=== PATIENT | male | born 1945 | race Caucasian/White ===

== ENCOUNTER → 2018-01-03 07:49 | Outpatient (CLI) | payer OTHER, SELFPAY ==
[2018-01-03 09:45] LABS: Potassium 3.2 mmol/L (3.5-5.1)
== END ==
PROVIDERS: PCP Nurse Practitioner Family; Visit Provider Nurse Practitioner Family
DX: E87.6 Hypokalemia (principal)
CPT/HCPCS: 36415; 84132

== ENCOUNTER 2019-10-14 01:46 | Outpatient (CLI) | payer OTHER, SELFPAY ==
[2019-10-14 08:26] LABS: Hemoglobin A1C 5.8 % (3.8-5.6)
[2019-10-14 10:01] LABS: ALT 41 U/L (16-63); AST 24 U/L (15-37); Albumin 3.8 g/dL (3.4-5.0); Alkaline Phosphatase 64 U/L (46-116); Anion Gap 6.8 mmol/L (3-11); BUN 15 mg/dL (7-18); Bilirubin, Total 1.5 mg/dL (0.2-1.0); CO2 31.2 mmol/L (21.0-32.0); CREATININE 1.08 mg/dL (0.70-1.30); Calcium 8.9 mg/dL (8.5-10.1); Calculated LDL 73 mg/dL (<100); Chloride 100 mmol/L (98-107); Cholesterol 125 mg/dL (<200); Glucose 104 mg/dL (74-106); HDL Cholesterol 32 mg/dL (40-60); Sodium 138 mmol/L (136-145); Total Protein 6.7 g/dL (6.4-8.2); Triglyceride 104 mg/dL (<150)
== END 2019-10-14 02:06 ==
PROVIDERS: PCP Nurse Practitioner Family; Visit Provider Nurse Practitioner Family
DX: E78.5 Hyperlipidemia, unspecified (principal); I10 Essential (primary) hypertension; R73.01 Impaired fasting glucose; E80.4 Gilbert syndrome
CPT/HCPCS: 36415; 80053; 80061; 83036

== ENCOUNTER 2020-06-10 05:03 | Outpatient (CLI) | payer MEDICARE, SELFPAY ==
[2020-06-10 09:12] LABS: Magnesium 1.7 mg/dL (1.8-2.4)
[2020-06-10 13:59] LABS: Potassium 3.1 mmol/L (3.5-5.1)
== END 2020-06-10 05:23 ==
PROVIDERS: PCP Nurse Practitioner Family; Visit Provider Nurse Practitioner Family
DX: E87.6 Hypokalemia (principal); E83.42 Hypomagnesemia
CPT/HCPCS: 36415; 80053; 80061; 83036; 83735; 84132; 85025

== ENCOUNTER 2021-01-07 02:20 | Outpatient (CLI) | payer MEDICARE, SELFPAY ==
[2021-01-07 07:49] LABS: Abs Immature Grans 0.02 10^3/uL (0.0-0.06); Absolute Basophil Count 0.06 10^3/uL (0.0-0.2); Absolute Eosinophil Count 0.12 10^3/uL (0.0-0.7); Absolute Monocyte Count 0.93 10^3/uL (0.1-0.8); Absolute Neutrophil Count 3.88 10^3/uL (1.2-6.7); Basophils % 0.8; Eosinophils % 1.5; HCT 47.4 % (40.0-50.0); HGB 16.2 g/dL (13.5-17.5); Immature Grans % 0.3; Lymphocytes % 35.9; MCH 32.7 pg (27.0-33.0); MCHC 34.2 % (32.0-36.0); MCV 95.8 fL (80-95); MPV 11.5 fL (8.0-11.0); Monocytes % 11.9; Neutrophils % 49.6; Nucleated RBC 0 %; Platelet Count 231 10^3/uL (130-400); RBC 4.95 10^6/uL (4.36-5.78); RDW 12.2 % (11.8-14.1); RDW-SD 43.1 fL; WBC 7.81 10^3/uL (4.4-10.8)
[2021-01-07 08:13] LABS: Prothrombin Time 10.1 sec (9.3-11.0)
[2021-01-07 08:48] LABS: ALT 35 U/L (16-63); AST 18 U/L (15-37); Albumin 4.1 g/dL (3.4-5.0); Alkaline Phosphatase 69 U/L (46-116); Anion Gap 8.6 mmol/L (3-11); BUN 12 mg/dL (7-18); CO2 33.4 mmol/L (21.0-32.0); CREATININE 1.1 mg/dL (0.70-1.30); Calcium 9.3 mg/dL (8.5-10.1); Calculated LDL 62 mg/dL (<100); Chloride 101 mmol/L (98-107); Cholesterol 119 mg/dL (<200); Glucose 103 mg/dL (74-106); HDL Cholesterol 36 mg/dL (40-60); Magnesium 1.9 mg/dL (1.8-2.4); Potassium 3.2 mmol/L (3.5-5.1); Sodium 143 mmol/L (136-145); Triglyceride 108 mg/dL (<150)
== END 2021-01-07 02:21 | disposition home or self-care (01) ==
LOC: LBO 02:20
PROVIDERS: PCP Nurse Practitioner Family; Visit Provider Nurse Practitioner Family
DX: I10 Essential (primary) hypertension (principal); R73.01 Impaired fasting glucose; E78.5 Hyperlipidemia, unspecified; K76.0 Fatty (change of) liver, not elsewhere classified; E83.42 Hypomagnesemia; Z51.81 Encounter for therapeutic drug level monitoring
CPT/HCPCS: 36415; 80053; 80061; 83735; 85025; 85610

== ENCOUNTER 2021-01-11 03:22 | Outpatient (CLI) | payer MEDICARE, SELFPAY ==
--- NOTE | 2021-01-11 07:30 | DI.US_ITS ---
APPROVED REPORT EXAM: Comprehensive 2D, Doppler, and color-flow Echocardiogram Patient Location: Out-Patient [place] Caster: Deepika Walker RDCS (AE) Indications: Mitral regurgitation Other Information Study Quality: Good Conclusion Normal left ventricular size and systolic function. Estimated ejection fraction is 60%. There are n o segmental wall motion abnormalities Normal right ventricular size and systolic function The left atrium is moderately dilated. The right atrium is normal in size The aortic valve is sclerotic and trileaflet without stenosis or regurgitation Moderate mitral annular calcification. Mild mitral regurgitation Normal tricuspid valve with trace regurgitation. Normal estimated right ventricular systolic pressur e Normal pulmonic valve with trace regurgitation The ascending aorta is mildly dilated Wall motion Left Ventricle The left ventricle is normal size. The left ventricular systolic function is normal. The left ventric ular ejection fraction is within the normal range. There is normal left ventricular wall thickness. T here is normal LV segmental wall motion. There is no ventricular septal defect visualized. Left ventr icular thrombus is present. Left ventricular thrombus appears mobile. LVEF is 60%. Right Ventricle The right ventricle is normal size. The right ventricular systolic function is normal. The RVSP is 26 .2 mmHg. Atria Left atrium is moderately dilated. The right atrium size is normal. The interatrial septum is intact with no evidence for an atrial septal defect. Aortic Valve The Aortic valve is sclerotic. Aortic valve is trileaflet. There is no aortic valvular stenosis. No a ortic regurgitation is present. Mitral Valve Moderate mitral annular calcification. No evidence of mitral valve stenosis. Mild mitral regurgitatio n. Tricuspid Valve The tricuspid valve is normal in structure. There is no tricuspid valve stenosis. Trace tricuspid reg urgitation. Pulmonic Valve The pulmonary valve is normal in structure. There is no pulmonic valvular stenosis. Trace pulmonic re gurgitation. Great Vessels The aortic root is normal in size. The ascending aorta is mildly dilated. Aortic arch is normal in ca liber. IVC is normal in size and collapses >50% with inspiration. Pericardium There is no pericardial effusion. 2D Dimensions IVSD d PLAX 0.89 cm M: 0.6-1.2 LV Vol A2C d MOD 125.5 mL LVPW d PLAX 0.86 cm M: 0.6 - 1.2 LV Vol A4C d MOD 97.5 mL LVID d PLAX 4.78 cm M: 4.2 - 5.8 LA vol/ BSA A2C s A-L 46.7 mL/m2 LVDs 3.15 cm M: 2.5 - 4.0 LA vol/ BSA A4C s A-L 26.4 mL/m2 Ao Root d 2.96 cm M: 3.1 - 3.7 LA Vol/ BSA Biplane s A-L 35.4 mL/m2 RA Area A4C 15.66 cm2 LA Area A4C s MOD 18.30 cm2 RA Vol/ BSA A4C s A-L 22.7 mL/m2 LA Area A2C s MOD 24.15 cm2 Ao Asc Diam d 3.69 cm M: 2.6 - 3.4 LV EF A4C MOD 60.5 % LV EF Teichholz 61.9 % LV EF A2C MOD 60.3 % LVEF (Leon's) 60.00 % M: 52 - 72 LV EF Biplane MOD 60.0 % LV Volume 85.10 mL M: 62 - 150 SV 66.86 mL LV Volume Index 45.02 mL/m2 M: 34 - 74 SV Index 35.26 mL/m2 LV Vol Biplane MOD 111.4 mL FS 33.30 % M-Mode TAPSE 2.91 cm (M/F) >1.7 LV Diastology MV E' medial 0.055 (>0.07 m/s) E/A Ratio 0.9 LV E/e MED 13.70 (<14) MV E Vmax 0.76 (0.4-1.3 m/s) MV E' lateral 0.093 (>0.1 m/s) MV A Vmax 0.85 (0.4-1.3 m/s) LV E/e LAT 8.10 (<14) MV E/A Ratio 0.86 MV E/E' medial 13.75 MV E/E' lateral 8.14 Aortic Valve LVOT Area 3.19 cm2 AoV Area Vmax 2.13 cm2 LVOT Vmax 1.22 m/s AoV Area/ BSA (Vmax) 1.12 cm2/m2 LVOT Mean Juan. 0.70 m/s YUSEF Mean Juan. 1.96 cm2 LVOT Peak Grad 5.9 mmHg YUSEF Mean Juan. Index 1.03 cm2/m2 LVOT Mean Grad 2.4 mmHg LVOT VTI 0.275 m LVOT Diam s 2.00 cm AoV Vmax 1.83 m/s Velocity Ratio 0.66 AoV Mean Juan. 1.14 m/s AoV Peak Grad 13.3 mmHg LVOT SV 87.77 mL AoV Mean Grad 6.2 mmHg AoV VTI 0.321 m AoV Area VTI 2.73 cm2 AoV Area/ BSA (VTI) 1.44 cm/m2 Mitral Valve MV DT 242 (160-240 msec) MR Vmax 4.99 m/s MV PHT 70 msec MR VTI 1.722 m MV Area PHT 3.13 cm2 MR Peak Grad 99.5 mmHg MV VTI 0.344 m MR Mean Grad 76.7 mmHg MV VTI Annulus 0.340 m MV Area VTI 2.52 (4.0-6.0 cm2) Pulmonary Valve PV Vmax 1.14 (0.5-1.5 m/s) RVOT Peak Gr. 1.39 mmHg PV Peak Grad 5.2 mmHg RVOT Mean Gr. 0.70 mmHg PV Mean Grad 2.6 mmHg RVOT VTI 0.134 m PV VTI 0.238 m RVOT Vmax 0.59 m/s Tricuspid Valve TR Peak Grad 23.2 mmHg TR Vmax 2.41 m/s RA Pressure 3.00 mmHg RVSP (TR) 26.2 mmHg
== END 2021-01-11 03:42 ==
PROVIDERS: PCP Nurse Practitioner Family; Visit Provider Nurse Practitioner Family
DX: I34.0 Nonrheumatic mitral (valve) insufficiency (principal); I77.810 Thoracic aortic ectasia; I35.8 Other nonrheumatic aortic valve disorders
CPT/HCPCS: 93306

== ENCOUNTER 2021-02-17 04:06 | Outpatient (CLI) | payer MEDICARE, SELFPAY ==
[2021-02-17 09:52] LABS: Anion Gap 7.6 mmol/L (3-11); BUN 15 mg/dL (7-18); CO2 31.4 mmol/L (21.0-32.0); Calcium 8.9 mg/dL (8.5-10.1); Chloride 104 mmol/L (98-107); Glucose 91 mg/dL (74-106); Magnesium 1.9 mg/dL (1.8-2.4); Potassium 4.1 mmol/L (3.5-5.1); Sodium 143 mmol/L (136-145)
== END 2021-02-17 04:07 | disposition home or self-care (01) ==
LOC: LBO 04:06
PROVIDERS: PCP Nurse Practitioner Family; Visit Provider Nurse Practitioner Family
DX: E87.6 Hypokalemia; E83.42 Hypomagnesemia
CPT/HCPCS: 36415; 80048; 83735

== ENCOUNTER 2022-04-05 03:18 | Outpatient (CLI) | payer MEDICARE, SELFPAY ==
[2022-04-05 10:50] LABS: Abs Immature Grans 0.01 10^3/uL (0.0-0.06); Absolute Basophil Count 0.05 10^3/uL (0.0-0.2); Absolute Eosinophil Count 0.14 10^3/uL (0.0-0.7); Absolute Lymphocyte Count 2.08 10^3/uL (1.2-3.4); Absolute Monocyte Count 0.75 10^3/uL (0.1-0.8); Absolute Neutrophil Count 3.54 10^3/uL (1.2-6.7); Basophils % 0.8; Eosinophils % 2.1; HCT 45.5 % (40.0-50.0); HGB 15.2 g/dL (13.5-17.5); Immature Grans % 0.2; Lymphocytes % 31.7; MCH 32.7 pg (27.0-33.0); MCHC 33.4 % (32.0-36.0); MCV 98 fL (80-95); MPV 11.3 fL (8.0-11.0); Monocytes % 11.4; Neutrophils % 53.8; Platelet Count 190 10^3/uL (130-400); RBC 4.65 10^6/uL (4.36-5.78); RDW-SD 43.5 fL; WBC 6.57 10^3/uL (4.4-10.8)
[2022-04-05 11:08] LABS: ALT 42 U/L (16-63); AST 19 U/L (15-37); Albumin 3.9 g/dL (3.4-5.0); Alkaline Phosphatase 69 U/L (46-116); BUN 19 mg/dL (7-18); Bilirubin, Total 1.7 mg/dL (0.2-1.0); CREATININE 1.1 mg/dL (0.70-1.30); Calcium 9.2 mg/dL (8.5-10.1); Calculated LDL 70 mg/dL (<100); Chloride 104 mmol/L (98-107); Cholesterol 126 mg/dL (<200); Estimated GFR 70.01 (mL/min/1.73m2); Glucose 101 mg/dL (74-106); HDL Cholesterol 38 mg/dL (40-60); Magnesium 1.8 mg/dL (1.8-2.4); Sodium 140 mmol/L (136-145); Total Protein 7.2 g/dL (6.4-8.2); Triglyceride 93 mg/dL (<150)
[2022-04-05 12:06] LABS: Hemoglobin A1C 5.8 % (<5.7)
== END 2022-04-05 03:19 | disposition home or self-care (01) ==
LOC: LBO 03:18
PROVIDERS: PCP Nurse Practitioner Family; Referring Provider Nurse Practitioner Family; Visit Provider Nurse Practitioner Family
DX: E78.5 Hyperlipidemia, unspecified (principal); R73.01 Impaired fasting glucose; I10 Essential (primary) hypertension; E83.42 Hypomagnesemia; K76.0 Fatty (change of) liver, not elsewhere classified
CPT/HCPCS: 36415; 80053; 80061; 83036; 83735; 85025

== ENCOUNTER → 2023-01-17 00:45 | Outpatient (CLI) | payer MEDICARE, SELFPAY ==
--- NOTE | 2023-01-17 07:15 | DI.CT_ITS ---
Exam(s) CT ABDOMEN PELVIS W EXAM: CT ABDOMEN PELVIS W CLINICAL HISTORY: r/o hernia, LOWER ABD PAIN, LT GROIN PAIN, R10.30. TECHNIQUE: Imaging Protocol: Axial computed tomography images with coronal and sagittal reformatted images were created and reviewed CONTRAST MATERIAL: Intravenous: Omnipaque 350 Contrast volume:100 ml Oral: yes / COMPARISON: No exams were available for comparison FINDINGS: ABDOMEN: Lung Bases: Normal where visualized. Heart size normal. Coronary arteries heavily calcified. Liver: Normal density. No measurable mass. Gallbladder and biliary tract: No radiodense calculus or dilation. Pancreas: Normal density, no abnormal calcifications or inflammatory process. Spleen: Normal. Kidneys: Normal size, contour and axis. No radiodense stones or obstructive uropathy. No suspicious m asses seen. Adrenal glands: No masses seen. Vasculature: Abdominal aorta non-dilated. Atherosclerotic calcifications. Soft tissues: Small fatty containing bilateral inguinal hernias, left slightly larger than right. No abdominal wall hernias. PELVIS: Bladder: No gross wall thickening. No calculi.No focal mass. Bowel: No obstruction. No bowel wall thickening. Appendix normal. Severe diverticulosis. No evide nce of diverticulitis. Peritoneal cavity: No ascites, collection or mesenteric inflammatory response. Bones: Unremarkable for age. Reproductive organs: Status post prostatectomy. Lymph nodes: Unremarkable. IMPRESSION:: Bilateral fatty containing inguinal hernias, left slightly greater than right. Diverticulosis. No evidence of diverticulitis. RADIATION DOSE DELIVERED: 859.47mGy.cm Total DLP DATA REPOSITORY: All CT scans at this facility are submitted to the National Radiology Data Registry (NRDR) Dose Index Registry (DIR) with the [employer] (ACR). RADIATION OPTIMIZATION: All CT scans at this facility use at least one of these dose optimization te chniques: automated exposure control; mA and/or kV adjustment per patient size (includes targeted exa ms where dose is matched to clinical indication); or iterative reconstruction.
[2023-01-17] MEDS: Barium Sulfate 2% W/V-Creamy Vanilla Smoothie 450 ML BTL 900 ML PO (08:25)
[2023-01-17] MEDS: Omnipaque 350 MG/ML 100 ML BTL IJ (10:24)
[2023-01-17] MEDS: Normal Saline - Diluent 50 ML VIAL IJ (10:24)
== END ==
PROVIDERS: PCP Nurse Practitioner Family; Visit Provider Nurse Practitioner Family
DX: K40.20 Bilateral inguinal hernia, without obstruction or gangrene, not specified as recurrent; K57.90 Diverticulosis of intestine, part unspecified, without perforation or abscess without bleeding
CPT/HCPCS: 74177; 82565; J3490

== ENCOUNTER → 2023-02-07 07:49 | Outpatient (BNVA) | payer MEDICARE, SELFPAY | PROVIDERS: PCP Nurse Practitioner Family; Referring Provider Nurse Practitioner; Visit Provider Surgery | DX: K46.9 Unspecified abdominal hernia without obstruction or gangrene (principal) | CPT/HCPCS: 99203 ==

== ENCOUNTER 2023-03-09 07:45 | Day surgery (SDC) | payer MEDICARE, SELFPAY ==
--- NOTE | 2023-03-08 19:59 | PDOC.DSDIS_ITS ---
Date of service: 03/09/23 Time of Service: 12:32 Discharge Plan Disposition Patient Disposition: Home Condition: Good Discharge Details Reason For Visit: Bilateral inguinal hernia repairs Attending Provider: Sam Bales Primary Care Provider: Caren Morrissey Home Meds and New Rx's Prescriptions: Continued Men's 50 Plus Multivitamin 400-20-370 mcg tablet 1 tab PO .COMPLEX Rx Instructions: 1 tab orally 3 times per week; give with meal/snack losartan 50 mg tablet 50 mg PO DAILY Qty: 90 3RF atorvastatin 80 mg tablet 80 mg PO DAILY Qty: 90 3RF clopidogrel [Plavix] 75 mg tablet 75 mg PO DAILY Qty: 90 3RF Rx Instructions: long-term tx hydrochlorothiazide 12.5 mg tablet 12.5 mg PO DAILY AM Qty: 90 3RF atenolol 50 mg tablet 75 mg PO DAILY Qty: 135 3RF No Action potassium 99 mg tablet Discharge Instructions Instructions: Inguinal Hernia Repair (GEN) Additional Instructions: Otoniel, you did great today. We are able to fix the hernia on both sides without any difficulty. Like we talked about beforehand, expect to have a little bit more pain over the next day or 2, as some of the nerve medication wears off. Alternating Tylenol and ibuprofen generally provide some relief. Have also provided a prescription for some tramadol, which she can be used if the Tylenol and ibuprofen are not cutting it. You should be up and moving around, but not exerting yourself too vigorously over the next week or 2. Keep your weight lifting less than 10 pounds. I look forward to seeing you in the office on March 21 at 10 AM. If you have any questions in the meantime, please do not hesitate to call. Referrals: Sam Bales MD [ [facility] STAFF PHYSICIAN] - (March 21 at 10 AM) Activity:: no heavy lifting Remove Dressings/Wound Care:: 24 hours Shower/Bathe:: 24 hours Diet:: As Tolerated Discharge Orders Discharge Orders: Discharge Order (Routine); Ordered 03/08/23 Ordered By: Sam Bales DS: Diagnosis Discharge Diagnosis (1) Bilateral inguinal hernia: Status: Acute
--- NOTE | 2023-03-08 20:01 | W.PM.OP ---
Date of service: 03/09/23 Time of Service: 12:45 Operative Note Operative Note DATE OF PROCEDURE: 03/09/23 PRE-OP DIAGNOSIS: Bilateral inguinal hernias POST-OP DIAGNOSIS: same PROCEDURE: Bilateral open inguinal hernia repair with mesh SURGEON: Sam Bales [employer] CONTR[employer] SPECIALIST: Jackson Garcia Refer to Anesthesia Record ESTIMATED BLOOD LOSS: 40 PATHOLOGY: none sent COMPLICATIONS: None Patient was transported to: PACU Patient's condition: stable Implants: PerFix light plug and patch on left and right side Indications: Otoniel is a 77-year-old male with painful bilateral inguinal hernias. Procedure Description: I began by confirming the bilateral nature of the procedure with the patient. Next, after induction of general anesthesia, the anesthesia specialist performed bilateral tap blocks using real-time ultrasound guidance. The right and left inguinal regions were then prepped and draped in the usual fashion. The left side was additionally draped in sterile covers as I elected to begin on the right. I began by making an oblique incision over the right inguinal region. I dissected down through the skin to the deep fascia. Next, I incised the fascia along the length of the inguinal canal to the external ring. I then carefully identified the ilioinguinal nerve and sharply divided. Once this was complete, I bluntly dissected the shelving edge of the inguinal ligament down towards the pubic tubercle. Here, I encircled all cord structures with a [place] drain. Next, I began dissecting the specific cord structures. Great care was taken to spare the vas deferens and the blood supply to the testicle. Next, I isolated the hernia sac from the other inguinal structures. I reduced it back to its normal anatomic position. I then used a curved to light extra-large mesh plug to obliterate the defect at the internal ring. I fixed in place with interrupted Prolene stitches. Next, I buttressed the posterior floor of the inguinal canal with a large mesh patch. I started by fixing it to the pubic tubercle. Next, I used Prolene sutures to affix it to the shelving edge of the inguinal ligament and the conjoined tendon. Laterally I tacked it to the external oblique fascia and reconstructed an internal ring without any strain on the cord structures. Once this was complete, I irrigated the surgical field. It appeared hemostatic. I then closed the anterior portion of the fascia to reconstruct the front wall of the inguinal canal. I did this with interrupted Vicryl stitches. Once again, I irrigated the surgical field and inspected for hemostasis. Finally, I approximated the superficial fascia and the deep layers of the skin with absorbable suture. Skin was closed with running subcuticular stitches. This incision was then covered with a sterile towel, and I turned my attention to the left side. The external drape was removed. I then incised the left inguinal region and dissected down to the inguinal canal as previously described. Similarly, the canal was opened along the length to the external ring. The ilioinguinal nerve was carefully dissected away from the cord structures and sharply divided. Next, I dissected the inguinal sac away from the cord structures, taking great care to preserve the blood supply to the testicle. This dissection did require division of some of the cremasterics muscles for adequate exposure. The hernia sac was then reduced back into the peritoneal cavity, and, similar to the right side, a extra-large PerFix light plug was used to block the internal ring. This was pexied down onto the muscle with Prolene stitches. Again, similar to the right side, I reconstructed the inguinal floor and posterior wall using a mesh patch. Again, the external ring was carefully reconstructed without any tension on the cord structures. The field was then irrigated, and the superficial layers were all reconstructed exactly the same as the right side. Skin and subcutaneous tissues were irrigated, and the skin was closed with running subcuticular stitches as well. Bandages were applied to both sides, and the patient was awakened and transferred to the recovery unit.
[2023-03-09] VITALS (9 sets, daily range): BP systolic 115–157; BP diastolic 49–78; PULSE 48–63; RESP 12–18; TEMP 36.6–36.7; O2SAT 95–100; BMI 29.7
[2023-03-09] MEDS: Gabapentin 300 MG CAP 600 MG PO (08:37)
[2023-03-09] MEDS: Acetaminophen 500 MG TAB 1000 MG PO (08:37)
[2023-03-09] MEDS: Celecoxib 200 MG CAP PO (08:37)
[2023-03-09] MEDS: Lactated Ringers 1,000 ML 80 ML IV (08:52)
--- NOTE | 2023-03-09 08:54 | ANES.PREOP_ITS ---
General Info Date of Service Date Performed: 03/09/23 Height: 5 ft 5 in Weight: 81 kg Body Mass Index (BMI): 29.7 Surgical Procedure: Operation Date: 03/09/23 10:10 Proposed Procedure Side Surgeon p Open Bilateral Inguinal Hernia Repair with mesh Bilateral Sam Bales MD Meds Allergies and Home Medications Allergies Allergy/AdvReac Type Severity Reaction Status Date / Time hornet venom Allergy Severe Anaphylaxsi Verified 03/09/23 08:33 s pneumococcal vaccine Allergy Unknown Verified 03/09/23 08:33 [From Prevnar 13 (PF)] tetanus and diphtheria Allergy Verified 03/09/23 08:33 toxoids lisinopril AdvReac Mild cough Verified 03/09/23 08:33 Home Medication Medication Instructions Recorded losartan 50 mg tablet 50 mg PO DAILY #90 tab-caps 06/23/22 atorvastatin 80 mg tablet 80 mg PO DAILY #90 tab-caps 07/07/22 clopidogrel 75 mg tablet (Plavix) 75 mg PO DAILY to prevent another 07/07/22 stroke #90 tab-caps hydrochlorothiazide 12.5 mg tablet 12.5 mg PO DAILY AM #90 tab-caps 07/07/22 [id number] acid-vit 1 tab PO .COMPLEX 10/05/22 K-lycop 400 mcg-20 mcg-370 mcg tablet (Men's 50 Plus Multivitamin) atenolol 50 mg tablet 75 mg (1.5 x 50 mg) PO DAILY #135 12/20/22 tab-caps potassium 99 mg tablet mg 03/09/23 Current Visit Medications: Current Medications Generic Name Dose Route Start Last Admin Trade Name Freq PRN Reason Stop Dose Admin Acetaminophen 1,000 mg 03/09/23 06:00 03/09/23 08:37 Acetaminophen 500 Mg Tab PO 04/07/23 23:59 1,000 mg PREOP LUIS CARLOS Administration Celecoxib 200 mg 03/09/23 06:00 03/09/23 08:37 Celecoxib 200 Mg Cap PO 04/07/23 23:59 200 mg PREOP LUIS CARLOS Administration Gabapentin 600 mg 03/09/23 06:00 03/09/23 08:37 Gabapentin 300 Mg Cap PO 04/07/23 23:59 600 mg PREOP LUIS CARLOS Administration Hydromorphone HCl 0.2 mg 03/08/23 20:02 Hydromorphone 2 Mg/Ml Syr IVP 04/07/23 20:01 Q1H PRN PRN Ringer's Solution 1,000 mls @ 80 mls/hr 03/09/23 06:00 03/09/23 08:52 IV 04/07/23 23:59 80 mls/hr INFUSION LUIS CARLOS Administration IV Miscellaneous Supplies 1 each 03/09/23 06:00 Iv Access IV 04/07/23 23:59 DIRECTED LUIS CARLOS Sodium Chloride 0 ml 03/09/23 06:00 Normal Saline Flush 10 Ml Syr IV 04/07/23 23:59 PRN PRN Sodium Chloride 0 ml 03/09/23 06:00 Normal Saline 10 Ml Vial IJ 04/07/23 23:59 DIRECTED PRN Sterile Water 0 ml 03/09/23 06:00 Water,Injection,Sterile 10 Ml Vial IJ 04/07/23 23:59 DIRECTED PRN Tramadol HCl 100 mg 03/08/23 20:02 Tramadol 50 Mg Tab PO 04/07/23 20:01 Q6H PRN PRN Pain PFSH Active Problems Active Problems: Problem Status Onset Code Bilateral inguinal hernia K40.20 Hypomagnesemia E83.42 Mitral valve regurgitation I34.0 Dyslipidemia 03/15/17 E78.5 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 no residual deficits, [place] [facility] [place]. Surgical History Surgical History (Updated 03/09/23 @ 08:35 by Lorraine Horan RN) repair broken leg R leg-approx 1956 laproscopy with bilateral total pelvic lymphadenectomy pt. denies colonoscopy for forceps biopsy Prostatectomy hx prostate cancer prostatect retropubic radical w/ nerve sparing laproscopic Tobacco Smoking/Tobacco Use Status: Former Tobacco Use Alcohol Alcohol Intake: current Alcohol intake frequency: a few times a week Alcohol type: wine Substance Use Substance use: Never Substance use type: does not use Vital Signs and Lab Results Vital Signs Most Recent Vital Signs in EMR: Most Recent Vital Signs Temp Pulse Resp BP Pulse Ox 36.7 C 55 L 18 157/71 H 97 03/09/23 08:21 03/09/23 08:21 03/09/23 08:21 03/09/23 08:21 03/09/23 08:21 Lab Results Blood Type / Crossmatch: No Data to Display Complete Blood Count: No Data to Display Complete Metabolic Panel: No Data to Display Liver Function Panel: No Data to Display Coagulation Panel: No Data to Display Cardiac Panel: No Data to Display Arterial Blood Gas: No Data to Display Venous Blood Gas: No Data to Display Pancreas Panel: No Data to Display Thyroid Panel: No Data to Display Infectious Disease: No Data to Display Blood Cultures: No Data to Display Toxicology Panel: No Data to Display Imaging and Studies Imaging and Studies Study information below may be from another EMR and interpreted by another provider. Please see original notes in EMR for more complete details. Echocardiogram Summary: Conclusion Normal left ventricular size and systolic function. Estimated ejection fraction is 60%. There are no segmental wall motion abnormalities Normal right ventricular size and systolic function The left atrium is moderately dilated. The right atrium is normal in size The aortic valve is sclerotic and trileaflet without stenosis or regurgitation Moderate mitral annular calcification. Mild mitral regurgitation Normal tricuspid valve with trace regurgitation. Normal estimated right ventricular systolic pressure Normal pulmonic valve with trace regurgitation The ascending aorta is mildly dilated 01/11/2021: Anesthesia Assessment and Plan Anesthesia History Personal History: No History of Anesthesia Complications Family History: No Family History of Anesthesia Complications Exercise Tolerance Exercise Tolerance: Metabolic Equivalents>4 Pertinent Negatives Pertinent Negatives: No Symptoms of GERD, No Major Cardiovascular Symptoms or Complaints and No Major Pulmonary Symptoms or Complaints Cardiac & Pulmonary Exam Cardiac Exam: Normal S1/S2 Heart Sounds Pulmonary Exam: Clear Bilateral Breath Sounds Implantable Cardiac Device Does patient have a Pacemaker or an ICD?: No Airway Exam Known Difficult Airway: No Mallampati Class: 2 Mouth Opening: Normal (> 3cm) Thyromental Distance: Greater than 3 cm Facial Hair: Full Mae Neck Range of Motion: Full ROM Neck Circumference: Normal Teeth Condition: Normal Dentition ASA Classification ASA Score: ASA 3 Emergency Case?: No NPO Status NPO Status: NPO Clears >2 hours, Solids >8 hours Anesthesia Plan Resuscitation Status: Full Code Anesthesia Technique: General Anesthesia Airway Planned: LMA Pain Management: Surgeon and patient request nerve block Monitors Used: Standard Monitors and SedLine Preoperative Comments:: GA LMA with bilateral TAP blocks planned, has held plavix for 7/days.
--- NOTE | 2023-03-09 11:29 | ANES.NERVE_ITS ---
Nerve Block Single Injection Procedure Date and Time Date Performed: 03/09/23 Procedure Start: 10:42 Location Where Procedure Performed Procedure Location: Operating Room Procedure Stop: 10:52 Reason Performed: Postoperative Analgesia Requesting Provider: Sam Bales Timeout Performed Timeout Performed: Yes Monitoring Used ECG, Blood Pressure, SpO2 and See EMR for corresponding vital signs Sterility Sterility: Hand Hygiene, Surgical Cap, Surgical Mask, Sterile Gloves and Chlorh exidine Sedation Given During Procedure Sedation Given (Indicate Dose Given): No Sedation given Patient Mental Status Patient Mental Status: Performed under general anesthesia Nerve Block 1st Nerve Block: Laterality: Bilateral Block Type: TAP Bilateral Ultrasound Image Saved?: Yes Needle / Catheter Used: 100mm SonoPlex II Local Anesthetic Bolus (Indicate Dose Given): Injected in 3-5ml increments after negative blood aspiration, Half of Total block solution given into each side, Bupivacaine 0.25% Dose:: 30mL and Exparel Dose:: 20mL Additives (Indicate Dose Given): None Ultrasound: Sterile probe cover and gel used Nerve Stimulator: Not Used Paresthesia: None Procedure Tolerated: No Complications Procedure Outcome: Successful Performed By: Cyndy Curtis
[2023-03-09] MEDS: Bupivacaine 0.25% Pres-Free 30 ML VIAL (11:52)
[2023-03-09] MEDS: EPINEPHrine 10 MG/10 ML ML (11:52)
--- NOTE | 2023-03-09 15:10 | W.ANESPOSTOP ---
Postoperative Evaluation Date, Time and Location Date Performed: 03/09/23 Time Performed: 14:15 Patient Location: Day Surgery Unit Vital Signs Most Recent Imported Vital Signs: Most Recent Vital Signs Temp Pulse Resp BP Pulse Ox 36.6 C 60 18 135/57 L 97 03/09/23 13:49 03/09/23 13:49 03/09/23 13:49 03/09/23 13:49 03/09/23 13:49 Pain Score Most Recent Pain Score: Most Recent Pain Score Pain Level 4 03/09/23 13:49 Assessment Mental Status: Awake (Alert & Oriented to Patient Baseline) Airway and Respiratory Function: Patent airway with normal (patient baseline) respiratory exam Cardiovascular Function: Hemodynamically Stable Hydration Status: Adequately Hydrated Nausea & Vomiting: No Nausea or Vomiting Pain: Pain is tolerable per patient Peripheral Nerve Block: Regional nerve block not resolved at time of post operative discharge
== END 2023-03-09 15:50 | disposition home or self-care (01) ==
LOC: SUR 07:46
PROVIDERS: PCP Nurse Practitioner Family; Visit Provider Surgery
PROC: (CPT 49505; principal; 2023-03-09 10:00)
DX: K40.20 Bilateral inguinal hernia, without obstruction or gangrene, not specified as recurrent (principal); I10 Essential (primary) hypertension; E83.42 Hypomagnesemia; I34.0 Nonrheumatic mitral (valve) insufficiency; Z86.73 Personal history of transient ischemic attack (TIA), and cerebral infarction without residual deficits
CPT/HCPCS: 49505; 64488; 76942; C1781; J1100; J2001; J2250; J2371; J2405; J2704

== ENCOUNTER → 2023-03-21 09:46 | Outpatient (BNVA) | payer MEDICARE, SELFPAY | PROVIDERS: PCP Family Medicine; Referring Provider Family Medicine; Visit Provider Surgery | DX: Z48.817 Encounter for surgical aftercare following surgery on the skin and subcutaneous tissue (principal); K40.20 Bilateral inguinal hernia, without obstruction or gangrene, not specified as recurrent ==

== ENCOUNTER 2023-04-06 02:40 | Outpatient (CLI) | payer MEDICARE, SELFPAY ==
[2023-04-06 07:33] LABS: Abs Immature Grans 0.03 10^3/uL (0.0-0.06); Absolute Basophil Count 0.07 10^3/uL (0.0-0.2); Absolute Lymphocyte Count 2.37 10^3/uL (1.2-3.4); Absolute Monocyte Count 0.92 10^3/uL (0.1-0.8); Absolute Neutrophil Count 3.39 10^3/uL (1.2-6.7); Eosinophils % 6.9; HGB 14.3 g/dL (13.5-17.5); Immature Grans % 0.4; Lymphocytes % 32.6; MCH 33.4 pg (27.0-33.0); MCV 98 fL (80-95); MPV 10.8 fL (8.0-11.0); Monocytes % 12.6; Neutrophils % 46.5; Platelet Count 197 10^3/uL (130-400); RBC 4.28 10^6/uL (4.36-5.78); RDW 11.9 % (11.8-14.1); RDW-SD 43.5 fL; WBC 7.28 10^3/uL (4.4-10.8)
[2023-04-06 07:59] LABS: Hemoglobin A1C 5.8 % (<5.7)
[2023-04-06 08:08] LABS: ALT 38 U/L (16-63); AST 16 U/L (15-37); Albumin 3.6 g/dL (3.4-5.0); Alkaline Phosphatase 75 U/L (46-116); Anion Gap 7.8 mmol/L (3-11); BUN 25 mg/dL (7-18); Bilirubin, Total 1.6 mg/dL (0.2-1.0); CO2 30.2 mmol/L (21.0-32.0); CREATININE 1.1 mg/dL (0.70-1.30); Calcium 9.2 mg/dL (8.5-10.1); Calculated LDL 73 mg/dL (<100); Chloride 105 mmol/L (98-107); Cholesterol 130 mg/dL (<200); Estimated GFR 69.57 (mL/min/1.73m2); Glucose 107 mg/dL (74-106); HDL Cholesterol 38 mg/dL (40-60); Magnesium 1.9 mg/dL (1.8-2.4); Potassium 3.7 mmol/L (3.5-5.1); Sodium 143 mmol/L (136-145); Triglyceride 97 mg/dL (<150)
== END 2023-04-06 02:41 | disposition home or self-care (01) ==
LOC: LBO 02:40
PROVIDERS: PCP Family Medicine; Visit Provider Nurse Practitioner Family
DX: R73.01 Impaired fasting glucose (principal); E78.5 Hyperlipidemia, unspecified; K76.0 Fatty (change of) liver, not elsewhere classified; E83.42 Hypomagnesemia; E87.6 Hypokalemia; I10 Essential (primary) hypertension
CPT/HCPCS: 36415; 80053; 80061; 83036; 83735; 85025

== ENCOUNTER → 2023-05-09 14:19 | Outpatient (BNVA) | payer MEDICARE, SELFPAY | PROVIDERS: PCP Family Medicine; Referring Provider Family Medicine; Visit Provider Surgery | DX: Z48.817 Encounter for surgical aftercare following surgery on the skin and subcutaneous tissue (principal); R10.31 Right lower quadrant pain; G89.18 Other acute postprocedural pain ==

== ENCOUNTER → 2023-05-24 02:03 | Outpatient (CLI) | payer MEDICARE, SELFPAY ==
--- NOTE | 2023-05-24 06:15 | DI.CT_ITS ---
Exam(s) CT PELVIC W EXAM: CT PELVIC W CLINICAL HISTORY: ? right sided inguinal hernia recurrance,K40.20 TECHNIQUE: Imaging Protocol: Axial computed tomography images with coronal and sagittal reformatted images were created and reviewed CONTRAST MATERIAL: Intravenous: Omnipaque 350 Contrast volume:100 mL Oral: Yes COMPARISON: CT CT ABDOMEN PELVIS W from 01/17/2023 FINDINGS: PELVIS: Abdominal Aorta: Abdominal portion non-dilated. Atherosclerosis. Bowel: There is diverticulosis seen in the colon, but no evidence of diverticulitis. No evidence of bowel wall thickening or obstruction is seen. Appendix is unremarkable. Peritoneal Cavity: No ascites, collection or mesenteric inflammatory response. Soft Tissues: The patient has had bilateral inguinal hernia repairs without evidence of a recurrent h ernia. No evidence of inguinal adenopathy or soft tissue mass/fluid collection is seen in the right groin. Bladder: Symmetric distention, no gross wall thickening. Reproductive Organs: Status post prostatectomy. Lymph Nodes: Within normal limits. Bones: Within normal limits for the patient's age. IMPRESSION: Status post bilateral inguinal hernia repair without evidence of a recurrent hernia. RADIATION DOSE DELIVERED: Total DLP Total DLP DATA REPOSITORY: All CT scans at this facility are submitted to the National Radiology Data Registry (NRDR) Dose Index Registry (DIR) with the [employer] (ACR). RADIATION OPTIMIZATION: All CT scans at this facility use at least one of these dose optimization te chniques: automated exposure control; mA and/or kV adjustment per patient size (includes targeted exa ms where dose is matched to clinical indication); or iterative reconstruction.
[2023-05-24] MEDS: Barium Sulfate 2% W/V-Berry Smoothie 450 ML BTL PO ×2 (07:36→07:37)
[2023-05-24 07:53] LABS: CREATININE 1.2 mg/dL (0.70-1.30); Estimated GFR 62.29 (mL/min/1.73m2)
[2023-05-24] MEDS: Omnipaque 350 MG/ML 500 ML BTL-Imaging package 100 ML IJ (08:41)
[2023-05-24] MEDS: Normal Saline - Diluent 50 ML VIAL IJ (08:44)
== END ==
PROVIDERS: PCP Family Medicine; Visit Provider Surgery
DX: K40.20 Bilateral inguinal hernia, without obstruction or gangrene, not specified as recurrent (principal)
CPT/HCPCS: 72193; 82565

== ENCOUNTER 2024-06-26 02:00 | Outpatient (CLI) | payer MEDICARE, SELFPAY ==
[2024-06-26 08:46] LABS: ALT 22 U/L (16-63); AST 15 U/L (15-37); Albumin 3.6 g/dL (3.4-5.0); Alkaline Phosphatase 90 U/L (46-116); Anion Gap 5.2 mmol/L (3-11); BUN 18 mg/dL (7-18); Bilirubin, Total 1.36 mg/dL (0.2-1.0); CO2 29.8 mmol/L (21.0-32.0); CREATININE 1.1 mg/dL (0.70-1.30); Calcium 9.2 mg/dL (8.5-10.1); Calculated LDL 66 mg/dL (<100); Chloride 106 mmol/L (98-107); Cholesterol 123 mg/dL (<200); Estimated GFR 68.71 (mL/min/1.73m2); Glucose 105 mg/dL (74-106); HDL Cholesterol 42 mg/dL (40-60); Potassium 4.2 mmol/L (3.5-5.1); Sodium 141 mmol/L (136-145); Total Protein 7.1 g/dL (6.4-8.2); Triglyceride 76 mg/dL (<150)
[2024-06-26 08:50] LABS: Hemoglobin A1C 5.6 % (<5.7)
== END 2024-06-26 02:01 | disposition home or self-care (01) ==
LOC: LBO 02:00
PROVIDERS: PCP Nurse Practitioner; Visit Provider Nurse Practitioner
DX: I10 Essential (primary) hypertension (principal); E83.42 Hypomagnesemia; R73.01 Impaired fasting glucose; K76.0 Fatty (change of) liver, not elsewhere classified; E78.5 Hyperlipidemia, unspecified
CPT/HCPCS: 36415; 80053; 80061; 83036; 83735